=== PATIENT | male | born 1990 | race Caucasian/White ===

== ENCOUNTER 2018-03-13 20:28 | Emergency (ER) | payer OTHER, SELFPAY ==
[2018-03-13 20:34] VITALS: BP 131/75; PULSE 85; RESP 16; TEMP 36.4; O2SAT 97; BMI 30.7
[2018-03-13] MEDS: cephALEXin 250 MG PREPACK 1 BOTTLE MISC (21:04)
[2018-03-13 21:16] VITALS: BP 131/74; PULSE 89; RESP 18; O2SAT 100
--- NOTE | 2018-03-13 21:19 | ED_ITS ---
HPI - Skin/Abscess/Foreign Bdy General Chief complaint: Skin/Abscess/Foreign Body Stated complaint: WOUND LEFT HAND NOT HEALING Time Seen by Provider: 03/13/18 20:35 Source: patient and family Mode of arrival: ambulatory Limitations: no limitations History of Present Illness HPI narrative: 27-year-old otherwise healthy male presents to the emergency department with a chief complaint of a separation of the wound from a surgical procedure a week ago. The patient had some site of cyst removed from the webspace between 2nd and 3rd fingers on his left hand by plastic surgeon in [place] and he had done well, following discharge instructions but fell onto his hand wounds. Upon taking dressing off it became clear that the glue holding portion of the wound together had . There is no ongoing drainage. Patient denies swelling or significant redness. He has had no fever or chills. Patient attempted to contact his surgeon was unsuccessful MD complaint: laceration Onset (ago): hour(s) Tetanus up to date: yes Location: L hand Severity: mild Relieving factors: none Exacerbating factors: none Related Data Previous Rx's Medication Instructions Recorded cephalexin [Keflex] 500 mg PO QID 7 Days #28 cap 03/13/18 Allergies Allergy/AdvReac Type Severity Reaction Status Date / Time No Known Drug Allergies Allergy Verified 03/13/18 20:38 Review of Systems Review of Systems All systems reviewed & are unremarkable except as noted in HPI and below Constitutional Denies chills, Denies fever(s), Denies lethargy and Denies weakness Eyes Denies change in vision, Denies eye discharge, Denies irritation and Denies loss of vision ENT Ears, Nose, Mouth, and Throat: Denies change in voice, Denies neck pain and Denies sore throat Cardiovascular Denies chest pain, Denies irregular heart rhythm, Denies lightheadedness, Denies palpitations, Denies dyspnea, Denies dyspnea on exertion and Denies orthopnea Respiratory Denies cough, Denies dyspnea, Denies dyspnea on exertion and Denies wheezing Gastrointestinal Gastrointestinal: Denies abdominal pain, Denies change in bowel habits, Denies diarrhea, Denies nausea and Denies vomiting Genitourinary Denies hematuria, Denies flank pain, Denies urinary incontinence and Denies urinary urgency Musculoskeletal Denies neck pain Integumentary/Breasts Denies pruritus, Reports erythema, Denies rash and Reports wounds Neurologic Denies confusion, Denies loss of vision and Denies weakness Psychiatric Denies anxiety, Denies confusion, Denies depression, Denies homicidal ideation and Denies suicidal ideation Endocrine Denies palpitations Hematologic/Lymphatic Denies easy bruising Allergic/Immunologic Denies wheezing PFSH Social History Smoking Status: Never smoker Exam Narrative Exam Narrative: Pleasant 27-year-old male in obvious or significant distress Initial Vital Signs Initial Vital Signs: Vital Signs Temperature 97.5 F L 03/13/18 20:34 Pulse Rate 85 03/13/18 20:34 Respiratory Rate 16 03/13/18 20:34 Blood Pressure 131/75 H 03/13/18 20:34 Pulse Oximetry 97 03/13/18 20:34 Const General: cooperative and well developed Nutritional Appearance: well nourished Orientation: alert, awake, oriented x3 and not confused Chest Chest: normal inspection of the chest Resp Effort & Inspection: normal respiratory effort, able to speak in complete sentences, no respiratory distress and no use of accessory muscles Auscultation: clear to auscultation bilaterally, no rales, no rhonchi and no wheezes GI Inspection: non-distended Palpation: soft, no hepatosplenomegaly, No guarding, No pulsatile mass and No tender Auscultation: normal bowel sounds Extrem Left upper extremity: hand (0.5 cm section open wound has dehisced between 2nd and 3rd fingers and web space of left hand. No drainage or exposure to deep structures. Patient has full range of motion and minimal pain) Course Orders Ordered: ED Orders 03/13/18 20:54 Wound Culture and Gram Stain Stat Discontinued Medications Cefazolin Sodium (Keflex) 1 bottle [facility] [place] [facility] Stop: 03/13/18 20:55 Last Admin: 03/13/18 21:04 Dose: 250 mg Consultations Consultation #1: Called to on-call orthopedic surgery and reviewed case. Recommendation not to close given time frame. Will initiate antibiotics and re- dress while jacob taping Vital Signs - 8 hr 03/13/18 20:34 Temperature 97.5 F L Pulse Rate 85 Respiratory Rate 16 Blood Pressure 131/75 H Pulse Oximetry 97 Discharge Plan Departure Patient Disposition: Home, Self-Care Clinical Impression: Dehiscence of surgical wound Instructions: DI for Wound Dehiscence Activity Restrictions/Additional Instructions: *You have been diagnosed with [ left hand surgical wound dehiscence ] *What to do: *Take medications as directed *Follow up with your surgeon on Wednesday, call for an appointment. Let them know you were seen in the Emergency Department and that we ask that you be seen in follow up *Return to ER if you should have any new, worsening or concerning symptoms , such as [ increased swelling, pain, drainage, fever over 101 F or other concerning symptoms] Prescriptions: New cephalexin [Keflex] 500 mg capsule 500 mg PO QID 7 Days Qty: 28 RF: 0
== END 2018-03-13 21:19 | disposition home or self-care (01) ==
PROVIDERS: Emergency Provider Emergency Medicine
DX: T81.31XA Disruption of external operation (surgical) wound, not elsewhere classified, initial encounter (principal)
CPT/HCPCS: 87070; 87075; 87077; 87147; 87186; 87205; 99282; 99283

== ENCOUNTER → 2020-02-14 10:30 | Outpatient (CLI) | payer OTHER, SELFPAY ==
--- NOTE | 2020-02-14 | DI.MRI.S_ITS ---
PROCEDURE: MR SHOULDER RT W CON INDICATIONS: PAIN IN RIGHT SHOULDER TECHNIQUE: After the administration of 12 mL of dilute intra-articular Gadolinium contrast, oblique coronal T1 and T2 spin echo with fat saturation, oblique sagittal T1 spin echo with and without fat saturation, oblique sagittal T2 fast spin echo with fat saturation, axial T1 spin echo with fat saturation through the shoulder. COMPARISON: None. FINDINGS: Image quality: Excellent. Rotator cuff: Tendinosis and very low grade articular and bursal surface partial-thickness tear involving distal supraspinatus at its insertion the humeral head is seen extending to musculotendinous junction. The infraspinatus, and subscapularis tendons appear intact throughout. No rotator cuff muscle atrophy on sagittal images. Bones and bursae: No bone marrow contusions or fractures. Mild acromioclavicular joint osteophytic changes are seen with downward osteophyte formation compressing the musculotendinous junction of supraspinatus. Capsule and soft tissues: The labrum and glenohumeral ligaments appear intact. The long head of the biceps tendon demonstrates normal location and morphology. The rotator interval appears normal, without fibrosis. The coracohumeral ligament is of normal thickness. No intra-articular bodies. IMPRESSION: 1. Mild acromioclavicular joint osteoarthritis. 2. Tendinosis and very low grade articular and bursal surface partial-thickness tear involving distal supraspinatus extending to musculotendinous junction. No full-thickness rotator cuff tendon rupture. 3. No evidence of focal labral tear. Dictated by: Singh Colmenares M.D. on 02/14/2020 at 13:04 Approved by: Singh Colmenares M.D. on 02/14/2020 at 13:06
--- NOTE | 2020-02-14 | DI.RAD.S_ITS ---
PROCEDURE: FL SHOULDER INJECTION MR/CT RT INDICATIONS: PAIN IN RIGHT SHOULDER TECHNIQUE: The indications, alternatives, benefits, risks, and complications of the procedure were explained to the patient. Written informed consent was obtained and placed in the chart. The shoulder was examined fluoroscopically and a site for needle placement chosen for entry into the glenohumeral joint from an anterior approach. The skin was prepped and draped in a sterile fashion, and 1% lidocaine infiltrated from skin down to joint capsule. A spinal needle was inserted into the glenohumeral joint, and a small amount of iodinated contrast media injected to confirm intra-articular placement of the needle tip. This was followed by approximately 12 mL dilute solution of a gadolinium containing MR contrast agent. The needle was removed and a dressing was applied. The patient was given postprocedural instructions and sent to the MR suite for MR imaging. FINDINGS: A single fluoroscopic spot image demonstrates intra-articular location of injected iodinated contrast. IMPRESSION: Successful fluoroscopically guided administration of dilute Gadolinium solution into the right shoulder joint for MR arthrogram. Dictated by: Cristofer Holt M.D. on 02/14/2020 at 11:43 Approved by: Cristofer Holt M.D. on 02/14/2020 at 11:43
== END ==
PROVIDERS: PCP Orthopaedic Surgery; Referring Provider Orthopaedic Surgery; Visit Provider Orthopaedic Surgery
DX: M25.511 Pain in right shoulder (principal); M19.011 Primary osteoarthritis, right shoulder; M75.111 Incomplete rotator cuff tear or rupture of right shoulder, not specified as traumatic
CPT/HCPCS: 23350; 73222; 77002